=== PATIENT | female | born 1985 | race African-American/Black ===

== ENCOUNTER 2021-10-23 23:40 | Inpatient (IN) ==
[2021-10-24] MEDS ORDERED: CARBOPROST TROMETHAMINE 250 MCG/ML AMP IM PRN (00:04)
[2021-10-24] MEDS ORDERED: MEPERIDINE 50 MG/1 ML VIAL IV PRN (00:04)
[2021-10-24] MEDS ORDERED: TRANEXAMIC ACID 1,000 MG in SODIUM CHLORIDE 0.9% 100 ML IV PRN (00:04)
[2021-10-24] MEDS ORDERED: BUTORPHANOL 2 MG/ML VIAL IV PRN (00:04)
[2021-10-24] MEDS ORDERED: miSOPROStoL 200 MCG TABLET RECTAL PRN (00:04)
[2021-10-24] MEDS ORDERED: ONDANSETRON 4 MG/2 ML VIAL IV PRN ×2 (00:04→18:28)
[2021-10-24] MEDS ORDERED: OXYTOCIN/LR 20 UNIT/1,000 ML BAG IV ONE ×2 (00:04→18:28)
[2021-10-24] MEDS ORDERED: METHYLERGONOVINE 0.2 MG/1 ML AMP IM PRN (00:04)
[2021-10-24] MEDS ORDERED: LACTATED RINGERS 1,000 ML IV SCH ×3 (00:30→18:30)
[2021-10-24 00:43] LABS: Basophils % 0.2 % (0.0-0.8); Eosinophils # 0.2 10*3/uL (0.0-0.87); Eosinophils % 2.9 % (0.00-10.9); Hematocrit 32.1 VOL% (35.7-47.0); Hemoglobin 10.6 GM/DL (12.0-16.0); Immature Granulocytes % 0.6 %; Immature Granulocytes Absolute 0.04 #; Lymphocytes # 2.6 10*3/uL (1.4-4.0); Lymphocytes % 41.6 % (21.3-54.2); Mean Corpuscular Volume 98.8 FL (87-102); Mean Platelet Volume 9.6 FL (9.6-12.0); Monocytes # 0.3 10*3/uL (0.11-0.8); Monocytes % 4.6 % (1.7-12.7); Neutrophils % 50.1 % (38.7-73.9); Platelet Count 206 T/CUMM (130-400); Red Blood Count 3.25 MC/CUMM (3.8-5.5); Red Cell Distribution Width 12.6 % (9.3-17.3); White Blood Count 6.3 T/CUMM (4-12)
[2021-10-24 01:07] LABS: Bilirubin,Total 0.4 MG/DL (0.20-1.00); Calcium 9.2 MG/DL (8.5-10.1); Osmolality,Calculated 272.7 MOS/KG (273-304); Potassium 3.5 MMOL/L (3.5-5.1); Total Protein 6.7 G/DL (6.4-8.2)
[2021-10-24] MEDS ORDERED: AMPICILLIN INJ 2,000 MG in SODIUM CHLORIDE 0.9% 100 ML IV ONE (01:28)
[2021-10-24] MEDS: AMPICILLIN INJ 1,000 MG in SODIUM CHLORIDE 0.9% 100 ML IV SCH ×4 (05:34→17:55)
[2021-10-24] MEDS ORDERED: FAMOTIDINE 20 MG/2 ML VIAL IV ONE (07:13)
[2021-10-24] MEDS ORDERED: CITRIC ACID/SODIUM CITRATE 30 ML UDCUP PO ONE (07:13)
[2021-10-24] MEDS ORDERED: LACTATED RINGERS 1,000 ML IV ONE (07:13)
[2021-10-24] MEDS ORDERED: ePHEDrine 50 MG/ML VIAL IV PRN (07:14)
[2021-10-24] MEDS ORDERED: diphenhydrAMINE 50 MG/1 ML VIAL IV PRN ×2 (07:14)
[2021-10-24] MEDS ORDERED: NALOXONE 0.4 MG/ML VIAL IV PRN (07:14)
[2021-10-24] MEDS ORDERED: LACTATED RINGERS 250 ML IV PRN (07:14)
[2021-10-24] MEDS ORDERED: PROMETHAZINE 25 MG/1 ML VIAL IM ONE (07:14)
[2021-10-24] MEDS ORDERED: hydrOXYzine HCL 25 MG/1 ML VIAL IM PRN (07:14)
[2021-10-24] MEDS: fentaNYL 2 MCG/ROPIV 0.2% EPID 100 ML EPIDURAL SCH ×2 (09:31→16:49)
[2021-10-24] MEDS ORDERED: OXYTOCIN/LR 20 UNIT/1,000 ML BAG IV SCH (10:30)
[2021-10-24 11:05] LABS: Bacteria,Urine Occasional /HPF (Few); Bilirubin,Urine Negative (Negative); Blood, Urine Negative (Negative); Glucose,Urine (UA) Negative (Negative); Ketones,Urine 15 mg/dL (Negative); Mucus,Urine Occasional /LPF (Occasional); Nitrite,Urine Negative (Negative); Protein,Urine Negative (Negative); RBC,Urine 1 /HPF (0-4); Squamous Epithelial Cell,Urine Occasional /HPF (0-10); Urine Appearance Clear (Clear); Urine Color Yellow (Yellow); Urine Specific Gravity 1.025 (1.001-1.035)
[2021-10-24] MEDS ORDERED: RHO(D) IMMUNE GLOBULIN 300 MCG SYRINGE IM ONE (18:28)
[2021-10-24] MEDS ORDERED: MAGNESIUM HYDROXIDE SUSP 30 ML UDCUP PO PRN (18:28)
[2021-10-24] MEDS ORDERED: SIMETHICONE CHEW 80 MG TABLET PO PRN (18:28)
[2021-10-24] MEDS ORDERED: ACETAMINOPHEN 325 MG TABLET PO PRN (18:28)
[2021-10-24 18:37] LABS: Cord Arterial Blood HCO3 18.8 MMOL/L
[2021-10-24 18:41] LABS: Cord Venous Blood HCO3 22.7 MMOL/L; Cord Venous Blood PCO2 47.1 MMHG; Cord Venous Blood PO2 35.6
[2021-10-25] MEDS: IBUPROFEN 800 MG TABLET PO PRN ×2 (00:35→19:51)
[2021-10-25] MEDS: DOCUSATE SODIUM 100 MG CAPSULE PO SCH ×3 (01:20→21:12)
[2021-10-25 05:34] LABS: Basophils % 0.1 % (0.0-0.8); Eosinophils # 0.1 10*3/uL (0.0-0.87); Eosinophils % 1.9 % (0.00-10.9); Hematocrit 29.4 VOL% (35.7-47.0); Hemoglobin 9.8 GM/DL (12.0-16.0); Immature Granulocytes % 0.5 %; Immature Granulocytes Absolute 0.04 #; Lymphocytes # 1.9 10*3/uL (1.4-4.0); Lymphocytes % 25.1 % (21.3-54.2); Mean Corpuscular HGB Conc 33.3 GM/DL (32-36); Mean Platelet Volume 10.3 FL (9.6-12.0); Monocytes # 0.6 10*3/uL (0.11-0.8); Monocytes % 7.3 % (1.7-12.7); Neutrophils % 65.1 % (38.7-73.9); Platelet Count 198 T/CUMM (130-400); Red Blood Count 2.97 MC/CUMM (3.8-5.5); Red Cell Distribution Width 12.8 % (9.3-17.3); White Blood Count 7.5 T/CUMM (4-12)
[2021-10-25] MEDS: MULTIVITAMIN (PRENATAL) TABLET PO SCH (09:52)
[2021-10-26] MEDS: IBUPROFEN 800 MG TABLET PO PRN (03:04)
[2021-10-26 07:28] VITALS: BP 121/73
[2021-10-26] MEDS: DOCUSATE SODIUM 100 MG CAPSULE PO SCH (08:37)
[2021-10-26] MEDS: MULTIVITAMIN (PRENATAL) TABLET PO SCH (08:38)
== END 2021-10-26 12:45 | disposition home or self-care (01) | DRG 560 ==
LOC: N.LD 23:40 → N.OB 10-24 22:30
PROVIDERS: ADMIT Obstetrics & Gynecology; ATTEND Obstetrics & Gynecology